=== PATIENT | female | born 2005 | race Caucasian/White ===

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

== ENCOUNTER 2023-08-02 10:04 | Outpatient (CLI) | payer BC | END 2023-08-02 10:05 | disposition home or self-care (01) | LOC: ULT 10:04 | PROVIDERS: ATTEND Pediatrics Pediatric Rheumatology | DX: M06.00 Rheumatoid arthritis without rheumatoid factor, unspecified site (principal) | CPT/HCPCS: 76999 ==

== ENCOUNTER 2023-10-12 07:55 | Outpatient (CLI) | payer BC | END 2023-10-12 07:56 | disposition home or self-care (01) | LOC: NM 07:55 | PROVIDERS: ATTEND Internal Medicine Gastroenterology | DX: R63.4 Abnormal weight loss (principal); R11.2 Nausea with vomiting, unspecified | CPT/HCPCS: 78264; A9541 ==